=== PATIENT | female | born 1945 | race African-American/Black ===

== ENCOUNTER 2017-02-09 19:38 | Observation (INO) ==
[2017-02-09] MEDS ORDERED: ASPIRIN 325 MG TABLET PO STA (21:11)
[2017-02-09] MEDS ORDERED: ALBUTEROL/IPRATROPIUM 3 ML NEB RESP TX STA (21:11)
[2017-02-09] MEDS ORDERED: ALUM/MAG/SIMETH/LIDO VISC 1:1 30 ML BOTTLE PO STA (21:11)
[2017-02-09] MEDS ORDERED: MORPHINE 2 MG/1 ML SYRINGE IV STA (21:11)
[2017-02-09] MEDS ORDERED: NITROGLYCERIN 2% OINT 1 INCH/GM PACK TOP STA (21:11)
[2017-02-09] MEDS ORDERED: FUROSEMIDE 40 MG/4 ML VIAL IV STA (21:11)
[2017-02-09] MEDS ORDERED: ONDANSETRON 4 MG/2 ML VIAL IV STA (21:11)
[2017-02-09 21:31] LABS: Basophils # 0.1 10*3/uL (0.0-0.2); Basophils % 1.4 % (0.0-0.8); Eosinophils # 0.4 10*3/uL (0.0-0.87); Eosinophils % 7.5 % (0.00-10.9); Hematocrit 34.7 VOL% (35.7-47.0); Hemoglobin 11.8 GM/DL (12.0-16.0); Immature Granulocytes % 0.2 %; Immature Granulocytes Absolute 0.01 #; Lymphocytes # 1.6 10*3/uL (1.4-4.0); Lymphocytes % 31.9 % (21.3-54.2); Mean Corpuscular Hemoglobin 28 PG (27-34); Mean Corpuscular Volume 83.2 FL (87-102); Mean Platelet Volume 10.8 FL (9.6-12.0); Monocytes # 0.6 10*3/uL (0.11-0.8); Monocytes % 11.7 % (1.7-12.7); Neutrophils # 2.4 10*3/uL (1.4-7.4); Neutrophils % 47.3 % (38.7-73.9); Platelet Count 246 T/CUMM (130-400); Red Blood Count 4.17 MC/CUMM (3.8-5.5); White Blood Count 5.1 T/CUMM (4-12)
[2017-02-09 21:39] LABS: PT Patient Result 10.8 SECS
[2017-02-09] MEDS ORDERED: ALUM/MAG/SIMETH/LIDO VISC 1:1 30 ML BOTTLE PO ONE (21:41)
[2017-02-09] MEDS ORDERED: NITROGLYCERIN 2% OINT 1 INCH/GM PACK TOP ONE (21:41)
[2017-02-09] MEDS ORDERED: FUROSEMIDE 40 MG/4 ML VIAL ONE (21:41)
[2017-02-09] MEDS ORDERED: ASPIRIN 325 MG TABLET ONE (21:41)
[2017-02-09] MEDS ORDERED: FUROSEMIDE 20 MG/2 ML VIAL ONE (21:41)
[2017-02-09] MEDS ORDERED: ONDANSETRON 4 MG/2 ML VIAL ONE (21:41)
[2017-02-09] MEDS ORDERED: MORPHINE 2 MG/1 ML SYRINGE ONE (21:41)
[2017-02-09 21:46] LABS: Alanine Aminotransferase 45 U/L (13-56); Alkaline Phosphatase 86 U/L (45-117); Aspartate Amino Transferase 44 U/L (0-37); Blood Urea Nitrogen 15 MG/DL (7-18); Calcium 9.1 MG/DL (8.5-10.1); Glucose 146 MG/DL (74-106); Magnesium 1.9 MG/DL (1.8-2.4); Osmolality,Calculated 269.4 MOS/KG (273-304); Potassium 3.8 MMOL/L (3.5-5.1); Sodium 133 MMOL/L (136-145); Total Protein 6.9 G/DL (6.4-8.3); Troponin I Only < 0.015 NG/ML (0.00-0.045)
[2017-02-09 21:48] LABS: Apearance,Urine CLEAR (Clear); Bilirubin,Urine Negative (Negative); Blood, Urine Negative (Negative); Glucose,Urine (UA) Negative (Negative); Ketones,Urine Negative (Negative); Nitrite,Urine Negative (Negative); Protein,Urine Negative; RBC,Urine 1 /HPF (0-4); Squamous Epithelial Cell,Urine Occasional /HPF (0-10); Urine Color Straw (Yellow); Urine Specific Gravity 1.006 (1.001-1.035); Urine Urobilinogen < 2.0 EU/DL (0.2-1.0); WBC,Urine <1 /HPF (0-6)
[2017-02-10] MEDS ORDERED: ALBUTEROL/IPRATROPIUM 3 ML NEB RESP TX STA (01:13)
[2017-02-10] MEDS ORDERED: ACETAMINOPHEN 325 MG TABLET PO PRN (02:22)
[2017-02-10] MEDS ORDERED: GLUCAGON 1 MG VIAL IM PRN (02:22)
[2017-02-10] MEDS ORDERED: DEXTROSE 50% 25 GM/50 ML VIAL IV PRN (02:22)
[2017-02-10] MEDS ORDERED: MORPHINE 2 MG/1 ML SYRINGE IV PRN (02:22)
[2017-02-10] MEDS ORDERED: ALBUTEROL/IPRATROPIUM 3 ML NEB RESP TX PRN (02:22)
[2017-02-10] MEDS ORDERED: ONDANSETRON 4 MG/2 ML VIAL IV PRN (02:22)
[2017-02-10] MEDS ORDERED: SODIUM CHLORIDE 0.9% 500 ML IV ONE (02:22)
[2017-02-10] MEDS ORDERED: guaiFENesin/DM ER 600-30 MG TABLET PO PRN (02:22)
[2017-02-10] MEDS: ENOXAPARIN 40 MG/0.4 ML SYRINGE SUBCUT SCH (03:53)
[2017-02-10] MEDS: SODIUM CHLORIDE 0.9% 1,000 ML IV SCH ×3 (04:27→22:51)
[2017-02-10] MEDS: INSULIN REGULAR 100 UNIT/ML SUBCUT SCH ×3 (07:09→17:37)
[2017-02-10 08:06] LABS: Risk Ratio 2.42; Thyroid Stimulating Hormone 0.77 uIU/ml (0.358-3.74); VLDL CHOLESTEROL 13.4 MG/DL
[2017-02-10] MEDS: ALBUTEROL/IPRATROPIUM 3 ML NEB RESP TX SCH ×3 (08:10→19:57)
[2017-02-10] MEDS: DOCUSATE SODIUM 100 MG CAPSULE PO SCH ×2 (09:17→22:12)
[2017-02-10] MEDS: predniSONE 5 MG TABLET PO SCH (09:17)
[2017-02-10] MEDS: PANTOPRAZOLE 40 MG TABLET PO SCH (09:18)
[2017-02-10] MEDS: MONTELUKAST 10 MG TABLET PO SCH (09:18)
[2017-02-10] MEDS ORDERED: IPRATROPIUM 0.06% NASAL SPRAY 15 ML BOTTLE BOTH NARES PRN (15:44)
[2017-02-10] MEDS ORDERED: MONTELUKAST 10 MG TABLET PO SCH (21:00)
[2017-02-10] MEDS ORDERED: AMITRIPTYLINE 25 MG TABLET PO SCH (21:00)
[2017-02-10] MEDS ORDERED: LOVASTATIN 20 MG TABLET PO SCH (21:00)
[2017-02-10] MEDS: metFORMIN 500 MG TABLET PO SCH (22:12)
[2017-02-10] MEDS: ATENOLOL 100 MG TABLET PO SCH (22:12)
[2017-02-11] MEDS: ALBUTEROL/IPRATROPIUM 3 ML NEB RESP TX SCH ×3 (01:31→13:07)
[2017-02-11] MEDS: INSULIN REGULAR 100 UNIT/ML SUBCUT SCH ×3 (01:40→12:14)
[2017-02-11] MEDS: ENOXAPARIN 40 MG/0.4 ML SYRINGE SUBCUT SCH (02:02)
[2017-02-11 05:09] LABS: Basophils % 0.2 % (0.0-0.8); Eosinophils % 0.1 % (0.00-10.9); Hematocrit 29.8 VOL% (35.7-47.0); Hemoglobin 10.1 GM/DL (12.0-16.0); Immature Granulocytes % 0.3 %; Immature Granulocytes Absolute 0.03 #; Lymphocytes # 1.1 10*3/uL (1.4-4.0); Lymphocytes % 10.2 % (21.3-54.2); Mean Corpuscular HGB Conc 33.9 GM/DL (32-36); Mean Corpuscular Hemoglobin 28 PG (27-34); Mean Corpuscular Volume 83.7 FL (87-102); Mean Platelet Volume 11.1 FL (9.6-12.0); Monocytes % 9.2 % (1.7-12.7); Neutrophils # 8.4 10*3/uL (1.4-7.4); Platelet Count 214 T/CUMM (130-400); Red Blood Count 3.56 MC/CUMM (3.8-5.5); Red Cell Distribution Width 13.9 % (9.3-17.3); White Blood Count 10.5 T/CUMM (4-12)
[2017-02-11 05:33] LABS: Calcium 8.7 MG/DL (8.5-10.1); Magnesium 1.8 MG/DL (1.8-2.4); Osmolality,Calculated 285.7 MOS/KG (273-304); Potassium 3.8 MMOL/L (3.5-5.1)
[2017-02-11] MEDS: PANTOPRAZOLE 40 MG TABLET PO SCH (08:54)
[2017-02-11] MEDS: predniSONE 5 MG TABLET PO SCH (08:55)
[2017-02-11] MEDS: DOCUSATE SODIUM 100 MG CAPSULE PO SCH (08:55)
[2017-02-11] MEDS: MONTELUKAST 10 MG TABLET PO SCH (08:55)
[2017-02-11] MEDS: ATENOLOL 100 MG TABLET PO SCH (08:56)
[2017-02-11] MEDS: metFORMIN 500 MG TABLET PO SCH (08:56)
[2017-02-11] MEDS ORDERED: CETIRIZINE 10 MG TABLET PO SCH (09:00)
[2017-02-11] MEDS ORDERED: LEVOTHYROXINE 125 MCG TABLET PO SCH (09:00)
[2017-02-11] MEDS ORDERED: amLODIPine 10 MG TABLET PO SCH (09:00)
[2017-02-11] MEDS ORDERED: TRIAMTERENE/HCTZ 37.5-25 MG TABLET PO SCH (09:00)
[2017-02-11] MEDS: SODIUM CHLORIDE 0.9% 1,000 ML IV SCH (12:13)
[2017-02-11 12:59] VITALS: BP 169/75
== END 2017-02-11 15:30 | disposition home or self-care (01) ==
LOC: N.ED 19:38 → N.EDINP 19:38 → N.4E 02-10 01:55
PROVIDERS: ADMIT Internal Medicine; ATTEND Internal Medicine

== ENCOUNTER 2021-07-14 16:22 | Inpatient (IN) ==
[2021-07-14] MEDS ORDERED: SODIUM CHLORIDE 0.9% 1,000 ML IV STA ×2 (16:48→17:35)
[2021-07-14 17:01] LABS: Basophils # 0.1 10*3/uL (0.0-0.2); Basophils % 2.1 % (0.0-0.8); Eosinophils % 0.5 % (0.00-10.9); Hematocrit 36.3 VOL% (35.7-47.0); Hemoglobin 11.9 GM/DL (12.0-16.0); Immature Granulocytes % 0.3 %; Immature Granulocytes Absolute 0.01 #; Lymphocytes # 0.7 10*3/uL (1.4-4.0); Lymphocytes % 18.1 % (21.3-54.2); Mean Corpuscular HGB Conc 32.8 GM/DL (32-36); Mean Corpuscular Volume 86.2 FL (87-102); Mean Platelet Volume 11.5 FL (9.6-12.0); Monocytes # 0.3 10*3/uL (0.11-0.8); Monocytes % 9.1 % (1.7-12.7); Neutrophils % 69.9 % (38.7-73.9); Platelet Count 241 T/CUMM (130-400); Red Blood Count 4.21 MC/CUMM (3.8-5.5); Red Cell Distribution Width 14.5 % (9.3-17.3); White Blood Count 3.8 T/CUMM (4-12)
[2021-07-14 17:13] LABS: Arterial Base Excess iSTAT -2 MMOL/L (-2.5-2.5); Arterial Bicarbonate iSTAT 21.8 MMOL/L (20-26); Arterial O2 Saturation iSTAT 98 % (95-100); Arterial PCO2 iSTAT 35 MM HG (35-48); Arterial PO2 iSTAT 99 MM HG (80-95); Arterial Total CO2 iSTAT 23 MMO/L (23-27); Arterial pH iSTAT 7.401 (7.35-7.45)
[2021-07-14 17:20] LABS: Albumin 3.8 G/DL (3.4-5.0); Bilirubin,Total 0.4 MG/DL (0.20-1.00); Calcium 9.1 MG/DL (8.5-10.1); Osmolality,Calculated 305.2 MOS/KG (273-304); Potassium 3.6 MMOL/L (3.5-5.1); Total Protein 7.6 G/DL (6.4-8.2)
[2021-07-14 17:39] LABS: PT Patient Result 11.1 SECS (10.5-12.0)
[2021-07-14] MEDS ORDERED: INSULIN REGULAR DRIP 100 ML IV PRN (17:46)
[2021-07-14 18:25] LABS: Mucus,Urine Occasional /LPF (Occasional); RBC,Urine 1 /HPF (0-4); Squamous Epithelial Cell,Urine Occasional /HPF (0-10)
[2021-07-14] MEDS ORDERED: DOCUSATE SODIUM 100 MG CAPSULE PO PRN (18:26)
[2021-07-14] MEDS ORDERED: SIMETHICONE CHEW 125 MG TABLET PO PRN (18:26)
[2021-07-14] MEDS ORDERED: DEXTROSE 10% 250 ML BAG IV PRN (18:26)
[2021-07-14] MEDS ORDERED: ONDANSETRON 4 MG/2 ML VIAL IV PRN (18:26)
[2021-07-14] MEDS ORDERED: PROMETHAZINE 25 MG/1 ML VIAL IM PRN (18:26)
[2021-07-14] MEDS ORDERED: GLUCAGON 1 MG VIAL IM PRN ×2 (18:26→21:57)
[2021-07-14] MEDS ORDERED: ALUMINUM/MAGNES/SIMETH MAX STR 30 ML UDCUP PO PRN (18:26)
[2021-07-14] MEDS ORDERED: SODIUM CHLORIDE 0.9% 1,000 ML IV SCH ×2 (18:30→21:30)
[2021-07-14 18:32] LABS: Bilirubin,Urine Negative (Negative); Blood, Urine Trace mg/dL (Negative); Glucose,Urine (UA) >1000 mg/dL (Negative); Ketones,Urine Negative (Negative); Nitrite,Urine Negative (Negative); Protein,Urine 100 mg/dL (Negative); Urine Appearance Clear (Clear); Urine Color Yellow (Yellow); Urine Urobilinogen 0.2 eU/dL (<2.0); Urine pH 5.5 (4.5-8.0)
[2021-07-14] MEDS: hydrALAZINE 20 MG/1 ML VIAL IV PRN (19:11)
[2021-07-14] MEDS ORDERED: SODIUM PHOSPHATE INJ 20 MMOL in SODIUM CHLORIDE 0.9% 250 ML IV PRN (20:05)
[2021-07-14] MEDS ORDERED: SODIUM BICARB INJ 100 MEQ in STERILE WATER INJ 400 ML IV PRN (20:05)
[2021-07-14] MEDS ORDERED: MAGNESIUM SULF RIDER 4 GM/100 ML PREMIX IV PRN (20:07)
[2021-07-14] MEDS ORDERED: MAGNESIUM SULF RIDER 2 GM/50 ML PREMIX IV PRN (20:07)
[2021-07-14] MEDS: niCARdipine INJ 25 MG in SODIUM CHLORIDE 0.9% 240 ML IV PRN (20:20)
[2021-07-14 20:28] LABS: Phosphorous 3.1 MG/DL (2.5-4.9)
[2021-07-14] MEDS ORDERED: OLANZapine 10 MG VIAL IM ONE ×2 (20:32→22:11)
[2021-07-14] MEDS ORDERED: DEXTROSE 50% 25 GM/50 ML VIAL IV PRN (21:57)
[2021-07-14] MEDS: atenoloL 50 MG TABLET PO SCH (22:46)
[2021-07-14] MEDS: INSULIN GLARGINE 100 UNIT/ML SUBCUT SCH (22:54)
[2021-07-14] MEDS: ENOXAPARIN 40 MG/0.4 ML SYRINGE SUBCUT SCH (22:55)
[2021-07-14 22:58] LABS: Calcium 9.8 MG/DL (8.5-10.1); Osmolality,Calculated 293.4 MOS/KG (273-304); Potassium 2.9 MMOL/L (3.5-5.1)
[2021-07-14] MEDS: MONTELUKAST 10 MG TABLET PO SCH (22:58)
[2021-07-14] MEDS ORDERED: METOPROLOL TARTRATE 5 MG/5 ML VIAL IV ONE (23:53)
[2021-07-15] MEDS: INSULIN REGULAR 100 UNIT/ML SUBCUT SCH ×2 (00:16→05:57)
[2021-07-15] MEDS: SODIUM CHLORIDE 0.9% 1,000 ML IV SCH ×2 (00:39→04:42)
[2021-07-15 00:43] LABS: Calcium 9.2 MG/DL (8.5-10.1); Osmolality,Calculated 294.4 MOS/KG (273-304); Potassium 3.1 MMOL/L (3.5-5.1)
[2021-07-15] MEDS: niCARdipine INJ 25 MG in SODIUM CHLORIDE 0.9% 240 ML IV PRN ×2 (04:00→09:13)
[2021-07-15 05:29] LABS: Basophils % 0.3 % (0.0-0.8); Hematocrit 33.5 VOL% (35.7-47.0); Hemoglobin 10.9 GM/DL (12.0-16.0); Immature Granulocytes % 0.5 %; Immature Granulocytes Absolute 0.05 #; Lymphocytes # 0.6 10*3/uL (1.4-4.0); Lymphocytes % 5.6 % (21.3-54.2); Mean Corpuscular HGB Conc 32.5 GM/DL (32-36); Mean Corpuscular Volume 86.6 FL (87-102); Mean Platelet Volume 12.2 FL (9.6-12.0); Monocytes # 0.9 10*3/uL (0.11-0.8); Monocytes % 8.2 % (1.7-12.7); Neutrophils % 85.4 % (38.7-73.9); Platelet Count 241 T/CUMM (130-400); Red Blood Count 3.87 MC/CUMM (3.8-5.5); Red Cell Distribution Width 14.6 % (9.3-17.3); White Blood Count 10.5 T/CUMM (4-12)
[2021-07-15 05:47] LABS: Calcium 9.1 MG/DL (8.5-10.1); Potassium 3.6 MMOL/L (3.5-5.1)
[2021-07-15 05:55] LABS: Albumin 3.1 G/DL (3.4-5.0); Bilirubin,Total 0.5 MG/DL (0.20-1.00); Calcium 8.4 MG/DL (8.5-10.1); Osmolality,Calculated 291.8 MOS/KG (273-304); Potassium 3.1 MMOL/L (3.5-5.1); Risk Ratio 2.27; Thyroid Stimulating Hormone 3.27 uIU/ml (0.358-3.74); Total Protein 6.5 G/DL (6.4-8.2); VLDL Cholesterol 3.6 MG/DL
[2021-07-15] MEDS: LEVOTHYROXINE 100 MCG TABLET PO SCH (05:57)
[2021-07-15] MEDS: SODIUM CHLORIDE 0.45% 1,000 ML IV SCH ×3 (07:00→22:45)
[2021-07-15 08:42] LABS: Calcium 8.7 MG/DL (8.5-10.1); Osmolality,Calculated 286.8 MOS/KG (273-304)
[2021-07-15] MEDS: POTASSIUM CHLORIDE RIDER 10 MEQ/100 ML PREMIX IV PRN ×3 (10:46→12:50)
[2021-07-15] MEDS ORDERED: INSULIN LISPRO 100 UNIT/ML SUBCUT SCH (11:00)
[2021-07-15] MEDS: INSULIN LISPRO 100 UNIT/ML SUBCUT SCH ×3 (11:42→20:05)
[2021-07-15] MEDS: PANTOPRAZOLE 40 MG TABLET PO SCH (13:42)
[2021-07-15] MEDS: POTASSIUM CHLORIDE 20 MEQ TABLET PO SCH (13:42)
[2021-07-15] MEDS: atenoloL 50 MG TABLET PO SCH ×2 (13:42→20:35)
[2021-07-15] MEDS: LOSARTAN/HCTZ 50-12.5 MG TABLET PO SCH (13:42)
[2021-07-15] MEDS: metFORMIN 500 MG TABLET PO SCH (13:43)
[2021-07-15] MEDS: CLOPIDOGREL 75 MG TABLET PO SCH (13:43)
[2021-07-15] MEDS: ASPIRIN EC 81 MG TABLET PO SCH (13:43)
[2021-07-15] MEDS: MEMANTINE 10 MG TABLET PO SCH ×2 (13:43→20:35)
[2021-07-15] MEDS: OXcarbazepine 300 MG TABLET PO SCH (13:53)
[2021-07-15 14:02] LABS: Calcium 8.5 MG/DL (8.5-10.1); Osmolality,Calculated 286.8 MOS/KG (273-304); Potassium 3.6 MMOL/L (3.5-5.1)
[2021-07-15 16:18] LABS: Calcium 8.7 MG/DL (8.5-10.1); Potassium 3.5 MMOL/L (3.5-5.1)
[2021-07-15] MEDS: SIMVASTATIN 10 MG TABLET PO SCH (20:35)
[2021-07-15] MEDS: MONTELUKAST 10 MG TABLET PO SCH (20:35)
[2021-07-15] MEDS: ENOXAPARIN 40 MG/0.4 ML SYRINGE SUBCUT SCH (20:36)
[2021-07-15] MEDS: hydrALAZINE 20 MG/1 ML VIAL IV PRN (21:28)
[2021-07-15] MEDS: INSULIN GLARGINE 100 UNIT/ML SUBCUT SCH (23:34)
[2021-07-16] MEDS: INSULIN LISPRO 100 UNIT/ML SUBCUT SCH ×6 (00:12→21:01)
[2021-07-16] MEDS: hydrALAZINE 20 MG/1 ML VIAL IV PRN ×3 (00:44→12:42)
[2021-07-16] MEDS: ACETAMINOPHEN 325 MG TABLET PO PRN ×3 (00:50→21:02)
[2021-07-16 03:42] LABS: Basophils # 0.1 10*3/uL (0.0-0.2); Basophils % 1.3 % (0.0-0.8); Eosinophils # 0.1 10*3/uL (0.0-0.87); Eosinophils % 1.5 % (0.00-10.9); Hematocrit 35.8 VOL% (35.7-47.0); Hemoglobin 11.7 GM/DL (12.0-16.0); Immature Granulocytes % 0.3 %; Immature Granulocytes Absolute 0.02 #; Lymphocytes # 1.3 10*3/uL (1.4-4.0); Lymphocytes % 21.2 % (21.3-54.2); Mean Corpuscular HGB Conc 32.7 GM/DL (32-36); Mean Corpuscular Volume 87.3 FL (87-102); Mean Platelet Volume 11.1 FL (9.6-12.0); Monocytes # 0.6 10*3/uL (0.11-0.8); Monocytes % 9.3 % (1.7-12.7); Neutrophils % 66.4 % (38.7-73.9); Platelet Count 269 T/CUMM (130-400); Red Cell Distribution Width 14.9 % (9.3-17.3)
[2021-07-16 04:03] LABS: Albumin 2.5 G/DL (3.4-5.0); Bilirubin,Total 0.6 MG/DL (0.20-1.00); Calcium 8.6 MG/DL (8.5-10.1); Osmolality,Calculated 281.1 MOS/KG (273-304); Potassium 3.2 MMOL/L (3.5-5.1); Total Protein 5.7 G/DL (6.4-8.2)
[2021-07-16] MEDS: POTASSIUM CHLORIDE 20 MEQ TABLET PO PRN ×3 (04:48→12:47)
[2021-07-16] MEDS: LEVOTHYROXINE 100 MCG TABLET PO SCH (06:15)
[2021-07-16] MEDS: SODIUM CHLORIDE 0.45% 1,000 ML IV SCH ×3 (07:20→23:31)
[2021-07-16] MEDS: LOSARTAN/HCTZ 50-12.5 MG TABLET PO SCH (08:13)
[2021-07-16] MEDS: metFORMIN 500 MG TABLET PO SCH (08:13)
[2021-07-16] MEDS: POTASSIUM CHLORIDE 20 MEQ TABLET PO SCH (08:14)
[2021-07-16] MEDS: OXcarbazepine 300 MG TABLET PO SCH (08:14)
[2021-07-16] MEDS: MEMANTINE 10 MG TABLET PO SCH ×2 (08:14→21:03)
[2021-07-16] MEDS: PANTOPRAZOLE 40 MG TABLET PO SCH (08:14)
[2021-07-16] MEDS: ASPIRIN EC 81 MG TABLET PO SCH (08:14)
[2021-07-16] MEDS: atenoloL 50 MG TABLET PO SCH ×2 (08:14→21:02)
[2021-07-16] MEDS: CLOPIDOGREL 75 MG TABLET PO SCH (08:14)
[2021-07-16] MEDS: amLODIPine 5 MG TABLET PO SCH (10:09)
[2021-07-16] MEDS: INSULIN GLARGINE 100 UNIT/ML SUBCUT SCH (21:01)
[2021-07-16] MEDS: SIMVASTATIN 10 MG TABLET PO SCH (21:02)
[2021-07-16] MEDS: MONTELUKAST 10 MG TABLET PO SCH (21:02)
[2021-07-16] MEDS: ENOXAPARIN 40 MG/0.4 ML SYRINGE SUBCUT SCH (21:02)
[2021-07-16] MEDS ORDERED: LORazepam 2 MG/1 ML VIAL IV ONE (23:20)
[2021-07-17] MEDS: INSULIN LISPRO 100 UNIT/ML SUBCUT SCH ×5 (01:03→18:04)
[2021-07-17] MEDS: hydrALAZINE 20 MG/1 ML VIAL IV PRN (05:25)
[2021-07-17 05:51] LABS: Bilirubin,Total 0.7 MG/DL (0.20-1.00); Calcium 9.6 MG/DL (8.5-10.1); Osmolality,Calculated 269.2 MOS/KG (273-304); Total Protein 7.3 G/DL (6.4-8.2)
[2021-07-17] MEDS: LEVOTHYROXINE 100 MCG TABLET PO SCH (06:17)
[2021-07-17 06:38] LABS: Basophils # 0.1 10*3/uL (0.0-0.2); Eosinophils # 0.1 10*3/uL (0.0-0.87); Hematocrit 52.2 VOL% (35.7-47.0); Hemoglobin 16.5 GM/DL (12.0-16.0); Immature Granulocytes % 0.1 %; Immature Granulocytes Absolute 0.01 #; Lymphocytes # 1.1 10*3/uL (1.4-4.0); Lymphocytes % 16.8 % (21.3-54.2); Mean Corpuscular HGB Conc 31.6 GM/DL (32-36); Mean Corpuscular Volume 89.7 FL (87-102); Mean Platelet Volume 12.2 FL (9.6-12.0); Monocytes # 0.7 10*3/uL (0.11-0.8); Monocytes % 10.4 % (1.7-12.7); Neutrophils % 70.7 % (38.7-73.9); Platelet Count 225 T/CUMM (130-400); Red Blood Count 5.82 MC/CUMM (3.8-5.5); White Blood Count 6.7 T/CUMM (4-12)
[2021-07-17] MEDS: MEMANTINE 10 MG TABLET PO SCH (10:50)
[2021-07-17] MEDS: CLOPIDOGREL 75 MG TABLET PO SCH (10:50)
[2021-07-17] MEDS: atenoloL 50 MG TABLET PO SCH (10:50)
[2021-07-17] MEDS: POTASSIUM CHLORIDE 20 MEQ TABLET PO SCH (10:51)
[2021-07-17] MEDS: ASPIRIN EC 81 MG TABLET PO SCH (10:51)
[2021-07-17] MEDS: OXcarbazepine 300 MG TABLET PO SCH (10:51)
[2021-07-17] MEDS: amLODIPine 5 MG TABLET PO SCH (10:51)
[2021-07-17] MEDS: LOSARTAN/HCTZ 50-12.5 MG TABLET PO SCH (10:51)
[2021-07-17] MEDS: metFORMIN 500 MG TABLET PO SCH (10:51)
[2021-07-17] MEDS: PANTOPRAZOLE 40 MG TABLET PO SCH (10:52)
[2021-07-17 16:29] VITALS: BP 144/76
[2021-07-17] MEDS: SODIUM CHLORIDE 0.45% 1,000 ML IV SCH (18:05)
== END 2021-07-17 17:36 | disposition home health service (06) | DRG 637 ==
LOC: EDUNIT# → EDBD → N.ED 16:22 → N.EDINP 18:26 → SUATTDRO 18:26 → N.ICU 21:15 → N.5E 07-16 15:02
PROVIDERS: ADMIT Internal Medicine; ATTEND Internal Medicine